=== PATIENT | female | born 1960 | race Two or more races ===

== ENCOUNTER 2018-09-07 14:36 | Emergency (ER) | payer SELFPAY ==
[~2018-09-07] VITALS: Ht 162.6 cm; Wt 61.5 kg
[~2018-09-07 14:36] MED LIST: LORA1TAB PO; OMEP40CA6 PO
--- NOTE | 2018-09-07 14:36 | NUR ---
BIBA form home c/o sudden & intermittent sternal CP ("woke me up from sleeping", worse w/palp & deep breaths), onset 0700 this AM followed by NVD & dizziness ~0900; denies cardiac hx; PIV, 324mg ASA, 4 mg zofran PRESS HAND per EMS; pt changed into gown, responds approp to staff, NAD, comfort measures provided, NAD, call light within reach; cardiac, NIBP & SpO2 monitors in place.
[2018-09-07] MEDS ORDERED: MAALOX/HYOSCYAMINE/LIDOCAINE 45 ML BTL PO ONE (15:00)
[2018-09-07] MEDS ORDERED: KETOROLAC 30 MG/1 ML IVPush ONE (15:00)
[2018-09-07] MEDS ORDERED: ONDANSETRON 2MG/ML, 2ML IVPush ONE (15:00)
[2018-09-07] MEDS ORDERED: PLEASE ENTER HEIGHT AND WEIGHT MC SCH (15:00)
[2018-09-07] MEDS ORDERED: MAALOX/HYOSCYAMINE/LIDOCAINE 45 ML BTL ONE (15:03)
[2018-09-07] MEDS ORDERED: ONDANSETRON 2MG/ML, 2ML ONE (15:11)
[2018-09-07] MEDS ORDERED: KETOROLAC 30 MG/1 ML ONE (15:11)
[2018-09-07 15:26] LABS: BASOPHILS # (AUTO) 0.11 x10^3/uL (0-0.1); BASOPHILS % (AUTO) 1 % (0-1); EOSINOPHILS # (AUTO) 0.03 x10^3/uL (0-0.4); EOSINOPHILS % (AUTO) 0 % (1-7); LYMPHOCYTES # (AUTO) 2.23 x10^3/uL (1-3.4); LYMPHOCYTES % (AUTO) 26 % (22-44); MD NO; MEAN CORPUSCULAR HEMOGLOBIN 33.5 pg (27.0-34.8); MEAN CORPUSCULAR HGB CONC 32.9 g/dL (32.4-35.8); MEAN CORPUSCULAR VOLUME 101.8 fL (80-100); MEAN PLATELET VOLUME 8.7 fL (7.4-10.4); MONOCYTES # (AUTO) 0.81 x10^3/uL (0.2-0.8); MONOCYTES % (AUTO) 9 % (2-9); NEUTROPHILS # (AUTO) 5.54 x10^3/uL (1.8-6.8); NEUTROPHILS % (AUTO) 64 % (42-75); PLATELET COUNT 261 x10^3/uL (130-400); RED BLOOD COUNT 4.54 x10^6/uL (3.82-5.3); RED CELL DISTRIBUTION WIDTH 13.5 % (9.6-15.2)
[2018-09-07 15:36] LABS: ALANINE AMINOTRANSFERASE 83 U/L (12-78); ALBUMIN 3.3 g/dL (3.4-5.0); ANION GAP 12 mmol/L (5-15); CALCIUM 8.5 mg/dL (8.5-10.1); CHLORIDE 111 mmol/L (98-107)
[2018-09-07 15:36] LABS: INTERNATIONAL NORMALIZED RATIO 0.95 (0.93-1.1)
[2018-09-07 15:41] LABS: ALKALINE PHOSPHATASE 122 U/L (45-117); BILIRUBIN,TOTAL 0.5 mg/dL (0.2-1.0); CREATININE 0.72 mg/dL (0.55-1.02); TOTAL PROTEIN 6.8 g/dL (6.4-8.2); TROPONIN I < 0.015 ng/mL (0.000-0.045)
--- NOTE | 2018-09-07 15:55 | NUR ---
pt remains upright on gurney awake & comfortable, responds approp to staff, NAD, comfort measures provided, call light within reach.
[2018-09-07 15:56] VITALS: BP 116/70
--- NOTE | 2018-09-07 16:17 | NUR ---
Esthela felix in [facility] - 09/07/18 at 1617 by NILA pt returned from [place]
--- NOTE | 2018-09-07 16:17 | NUR ---
charted on wrong pt
--- NOTE | 2018-09-07 16:35 | NUR ---
Patient given taxi voucher, discharge instructions and & Rx, they have confirmed that they understand the instructions. Patient ambulatory with steady gait.
== END 2018-09-07 16:37 | disposition home or self-care (01) ==
LOC: ED 15:44
DX: K29.00 Acute gastritis without bleeding (principal); R07.89 Other chest pain
CPT/HCPCS: 36415; 71045; 80053; 84484; 85025; 85610; 85730; 93005; 96374; 96375; 99284; J1885; J2405